=== PATIENT | male | born 1985 | race African-American/Black ===

== ENCOUNTER 2020-03-11 12:56 | Emergency (ER) | payer OTHER ==
[~2020-03-11] VITALS: Ht 177.8 cm; Wt 85.7 kg
[2020-03-11] MEDS ORDERED: NORCO 5-325 TA1 EAC1 PO (14:06)
[2020-03-11 14:29] VITALS: BP 105/69
== END 2020-03-11 14:30 | disposition home or self-care (01) ==
LOC: M.ERS 12:56
DX: S93.691A Other sprain of right foot, initial encounter (principal); W10.8XXA Fall (on) (from) other stairs and steps, initial encounter; Y93.89 Activity, other specified; Y92.89 Other specified places as the place of occurrence of the external cause; Y99.8 Other external cause status